=== PATIENT | male | born 1985 | race Caucasian/White ===

== ENCOUNTER 2021-07-31 10:17 | Emergency (ER) | payer BC ==
[~2021-07-31] VITALS: Ht 180.3 cm; Wt 83.4 kg
[2021-07-31] MEDS ORDERED: IBUP80TA PO (11:44)
[2021-07-31 11:54] VITALS: BP 137/95
== END 2021-07-31 12:18 | disposition home or self-care (01) ==
LOC: M ED 10:17
DX: M25.531 Pain in right wrist (principal); R93.6 Abnormal findings on diagnostic imaging of limbs; W22.8XXA Striking against or struck by other objects, initial encounter; Y92.009 Unspecified place in unspecified non-institutional (private) residence as the place of occurrence of the external cause; M06.9 Rheumatoid arthritis, unspecified; F41.9 Anxiety disorder, unspecified; F32.A Depression, unspecified; Z88.0 Allergy status to penicillin; Z79.899 Other long term (current) drug therapy